=== PATIENT | female | born 1940 | race Caucasian/White ===

== ENCOUNTER 2017-04-14 12:30 | Emergency (ER) | payer MEDICARE, BC ==
--- NOTE | 2017-04-14 13:49 | UC ---
Complaint Female HPI - HPI Summary HPI Summary: pt presents with sudden left lateral lower abdomen pain with sudden onset of hematuria X 1 day. Pt has known kidney stones, denies urinary symptoms of frequency, urgency or dysuria. - History Of Current Complaint Chief Complaint: UCGU Stated Complaint: URINARY COMPLAINT Time Seen by Provider: 04/14/17 12:43 Hx Obtained From: Patient ?: No Onset/Duration: Sudden Onset, Lasting Days - 1, Still Present - hematuria, and improved left lateral mid abdominal discomfort Timing: Constant Severity Initially: Moderate Severity Currently: Mild Character: Dull Aggravating Factor(s): Nothing Associated Signs And Symptoms: Positive: Negative - Allergies/Home Medications Allergies/Adverse Reactions: Allergies Allergy/AdvReac Type Severity Reaction Status Date / Time Morphine Allergy Unknown Rash Verified 04/14/17 12:48 Tetanus Toxoid Allergy Unknown Unknown Verified 04/14/17 12:48 Reaction Details Irbesartan [From Avapro] AdvReac Unknown Dizziness Verified 04/14/17 12:48 Lisinopril AdvReac Unknown Coughing Verified 04/14/17 12:48 Propranolol [From Inderal] AdvReac Unknown See Comment Verified 04/14/17 12:48 Valsartan [From Diovan] AdvReac Unknown Dizziness Verified 04/14/17 12:48 Home Medications: Home Medications Aspirin [Aspirin Enteric Coated 81 MG] 81 mg PO DAILY 04/14/17 [History Confirmed 04/14/17] Ivabradine HCl [Corlanor] 5 mg PO BID 04/14/17 [History Confirmed 04/14/17] Rx Allergy Med 1 tab PO DAILY 04/14/17 [History] PMH/Surg Hx/FS Hx/Imm Hx Previously Healthy: No - see pmh Cardiovascular History: Cardiac Disease GI/ History: Diverticulitis - Surgical History Surgical History: Yes Surgery Procedure, Year, and Place: DIFIBRALATOR /PACEMAKER. EXP LAP/ APPENDECTOMY. HERNIA REPAIR. D/CS. LUMPECTOMY-RIGHT BREAST - Family History Known Family History: Positive: Cardiac Disease - Social History Occupation: Retired Lives: With Family Alcohol Use: Daily Substance Use Type: None Smoking Status (MU): Former Smoker Have You Smoked in the Last Year: No When Did the Patient Quit Smoking/Using Tobacco: 1987 Review of Systems Constitutional: Negative Skin: Negative Eyes: Negative ENT: Negative Respiratory: Negative Cardiovascular: Negative Gastrointestinal: Abdominal Pain - improved since onset Genitourinary: Hematuria Motor: Negative Neurovascular: Negative Musculoskeletal: Negative Neurological: Negative Psychological: Negative All Other Systems Reviewed And Are Negative: Yes Physical Exam Triage Information Reviewed: Yes Appearance: Well-Appearing Vital Signs: Initial Vital Signs Temp 97.4 F 04/14/17 12:55 Pulse 61 04/14/17 12:55 Resp 20 04/14/17 12:55 BP 110/66 04/14/17 12:55 Pulse Ox 95 04/14/17 12:55 Vital Signs Reviewed: Yes Eye Exam: Normal ENT Exam: Normal Dental Exam: Normal Neck exam: Normal Respiratory Exam: Normal Cardiovascular Exam: Normal Abdominal Exam: Other Abdomen Description: Positive: Other: - sild tenderness left lateral mid lower quadrant Musculoskeletal Exam: Normal Neurological Exam: Normal Psychological Exam: Normal Skin Exam: Normal Complaint Female Dx - Course Course Of Treatment: I spoke with the pt about the need to follow up with her PCP and urologist as soon aspossible. Pt was in no acute pain distress. Pt stated that her stools and bowel pattern has been within normal pattern, consistency and frequency. Denies fever, chills, nausea or vomiting, diarrhea, I explaine dto her that our UA machine could not provide an analysis of her urine and that I was sending it to the lab for culture, and UA. Pt verbalized understanding and agreed to plan of care. - Differential Dx/Diagnosis Differential Diagnosis/HQI/PQRI: Urinary Tract Infection Provider Diagnoses: hematuria. abdominal pain Discharge - Discharge Plan Condition: Stable Disposition: HOME Prescriptions: Cephalexin CAP* [Keflex 500 CAP*] 500 mg PO Q12H #10 cap Fluconazole 100 MG TAB* [Diflucan 100 MG TAB*] 100 mg PO ONCE #2 tab Patient Education Materials: Hematuria (ED) Referrals: Ainsley Velásquez MD [Medical Doctor] - Waylon Cortez MD [Medical Doctor] - Demarco Singh MD [Medical Doctor] - Additional Instructions: It is important that you follow up as soon as possible regarding the finding of hematuria today. We have sent your urine for further testing and have referred you to two different urologists. Please make an appointment with one as soon as possible. Please note that if your symptoms do not improve in the next 24 hours that you should seek care at the closest emergency room.
[2017-04-14 13:54] VITALS: BP 110/66
[2017-04-14 18:52] LABS: Urine Bacteria Absent (Absent)
== END 2017-04-14 14:07 | disposition home or self-care (01) ==
LOC: UCCORT 12:30
DX: R10.32 Left lower quadrant pain (principal); R31.9 Hematuria, unspecified; I51.9 Heart disease, unspecified; Z87.891 Personal history of nicotine dependence; Z95.810 Presence of automatic (implantable) cardiac defibrillator; Z79.82 Long term (current) use of aspirin; Z88.5 Allergy status to narcotic agent; Z88.7 Allergy status to serum and vaccine; Z88.8 Allergy status to other drugs, medicaments and biological substances
CPT/HCPCS: 81003; 81015; 99212; G0463